=== PATIENT | male | born 1970 | race Caucasian/White ===

== ENCOUNTER 2020-01-16 13:37 | Emergency (ER) | payer MEDICARE, MEDICAID ==
[~2020-01-16] VITALS: Ht 182.9 cm; Wt 95.5 kg
[2020-01-16 13:47] VITALS: BP 171/94; Ht 182.9 cm; Wt 95.5 kg
== END 2020-01-16 15:08 | disposition left against medical advice (07) ==
LOC: EDBD 13:37 → D.ER 13:37
DX: R46.89 Other symptoms and signs involving appearance and behavior (principal)